=== PATIENT | male | born 2000 | race Caucasian/White ===

== ENCOUNTER 2021-01-09 15:59 | Emergency (ER) | payer OTHER ==
[~2021-01-09] VITALS: Ht 172.7 cm; Wt 65.8 kg
[2021-01-09 16:02] VITALS: BP 143/82
--- NOTE | 2021-01-09 16:02 | NUR ---
PT TRIAGED AND SENT TO ER LOBBY TO WAIT FOR AVAILABLE BED. PT STABLE AND AMBULATED OUT TO LOBBY WIH NO DISTRESS.
--- NOTE | 2021-01-09 17:27 | NUR ---
PATIENT LEFT WITHOUT BEING SEEN BY DR. GALAN. NO FURTHER CARE PROVIDED FOR PATIENT.
== END 2021-01-09 17:27 | disposition left against medical advice (07) ==
LOC: MED 15:59
DX: M79.605 Pain in left leg (principal); Z53.21 Procedure and treatment not carried out due to patient leaving prior to being seen by health care provider